=== PATIENT | female | born 1970 | race Caucasian/White ===

== ENCOUNTER 2021-03-29 19:27 | Emergency (ER) | payer MEDICARE, MEDICAID ==
[~2021-03-29] VITALS: Ht 170.2 cm; Wt 131.5 kg
[2021-03-29] MEDS ORDERED: DIPH,PERTUSS(ACELL),TET VAC/PF 0.5 ML SYRINGE. VAX IM ONE (20:30)
[2021-03-29] MEDS ORDERED: LIDOCAINE 2% 20 ML VIAL. IJ ONE (20:30)
--- NOTE | 2021-03-29 20:49 | PHYS DOC ---
Past History Past Surgical History: Appendectomy, Cervical Fusion, Cholecystectomy, Knee Replacement Additional Past Surgical Histo: l replace knee, r arthoscopic x 3 (FLOR POP) Alcohol Use: None (FLOR POP) General Adult EDM: Chief Complaint: LACERATION/AVULSION HPI: HPI: Patient is a 50 year old female who presents with laceration to the second digit of her right hand. She reports pain at the PIP joint of the second digit only. Patient states that she was opening a can of chili when she injured herself. She states that there was a significant amount of blood, but that it stopped bleeding just prior to arrival. Patient states that she did not see any bone or tenderness tissue. Patient does not have any drug allergies, but is unsure of the date of her last tetanus vaccine. (FLOR POP) Review of Systems: Review of Systems: Constitutional: Denies fever or chills Respiratory: Denies cough or shortness of breath Cardiovascular: Denies chest pain or edema Musculoskeletal: See HPI Integument: See HPI Neurologic: Denies headache, focal weakness or sensory changes (FLOR POP) Current Medications: Current Meds: Current Medications Medications (Trade) Dose Ordered Sig/Ana Start Time Stop Time Status Last Admin Dose Admin Diphtheria/ Pertussis/Tetanus Vacc (ADACEL TDap SYRINGE) 0.5 ml ONCE ONCE 03/29/21 20:30 03/29/21 20:31 DC 03/29/21 20:29 0.5 ML Lidocaine HCl (Lidocaine 2%) 20 ml 1X ONCE 03/29/21 20:30 03/29/21 20:31 DC 03/29/21 20:27 20 ML (FLOR POP) Allergies: Allergies: Allergies Coded Allergies Type Severity Reaction Last Updated Verified No Known Drug Allergies 03/29/21 No (FLOR POP) Physical Exam: PE: Constitutional: Well developed, well nourished, no acute distress, non-toxic appearance. Cardiovascular: Heart rate regular rhythm, no murmur. Lungs & Thorax: Bilateral breath sounds clear to auscultation. Skin: 1.2 cm laceration to the dorsal aspect of right digit 2 just distal to the PIP joint. Skin otherwise warm, dry, no erythema, no rash. Extremities: Second digit on right hand swollen and tender, range of motion intact. Extremities otherwise no tenderness, no cyanosis, no clubbing, ROM intact, no edema. (FLOR POP) PE: Constitutional: Well developed, well nourished, no acute distress, non-toxic appearance HENT: Normocephalic, atraumatic Eyes: Conjunctiva normal, no discharge Neck: Normal range of motion, supple Lungs & Thorax: No respiratory distress, equal chest rise and fall Skin: Warm, dry, no erythema, 2 cm laceration to distal PIP nonbleeding Extremities: Full ROM of all finger of right hand, laceration to right index finger as above Neurologic: Alert and oriented X 3, no focal deficits noted Psychologic: Affect normal, judgment normal (LEWIS SUBRAMANIAN DO) Current Patient Data: Vital Signs: Vital Signs Date Time Temp Pulse Resp B/P (MAP) Pulse Ox O2 Delivery O2 Flow Rate FiO2 03/29/21 19:35 99.0 86 18 172/91 (118) 96 Room Air (FLOR POP) Heart Score: C/O Chest Pain: No (FLOR POP) Course & Med Decision Making: Course & Med Decision Making Pertinent Labs and Imaging studies reviewed. (See chart for details) Patient's tetanus vaccine will be updated in the department today. After cleansing and digit block, wound will be explored for any retained foreign bodies and to evaluate depth of injury. (FLOR POP) Dragon Disclaimer: Dragon Disclaimer: This electronic medical record was generated, in whole or in part, using a voice recognition dictation system. (FLOR POP) Laceration Repair Lac Repair Sutures placed by Dr. Subramanian and myself. Indication: 1.2 cm laceration to dorsal aspect of right digit 1 Procedure: The patient was placed in the appropriate position and anesthesia was a digital block with lidocaine 2% plain. The area was then cleansed and debrided with Betadine. The laceration was closed with four 4-0 nylon simple interrupted sutures. The wound area was then dressed with adhesive bandage. Total repaired wound length: 1.2 cm Other Items: The patient tolerated the procedure very well. Complications: Patient became nauseated and was administered for Zofran ODT. (FLOR POP) Departure Departure: Impression: Primary Impression: Laceration of right index finger w/o foreign body w/o damage to nail Qualified Codes: S61.210A - Laceration without foreign body of right index finger without damage to nail, initial encounter Disposition: HOME / SELF CARE / HOMELESS Condition: STABLE Referrals: NON,STAFF (PCP) Patient Instructions: Laceration Care, Adult, [id number] Additional Instructions: As discussed, do not submerge your hand in water. You can have the sutures removed in 10 days either here in the emergency department, at urgent care, or with your primary care provider. Please return to the emergency department if you develop signs of infection or the stitches break. Attending Signature Attending Signature I have personally interviewed and examined the patient. All charts, labs, and imaging studies were reviewed. I agree with the PA/WELDING PROCESS ENGINEER's findings, exam, and plan. (LEWIS SUBRAMANIAN DO) FLOR POP Mar 29, 2021 20:49 LEWIS SUBRAMANIAN DO Mar 29, 2021 23:26
[2021-03-29] MEDS ORDERED: ONDANSETRON ODT 4 MG TAB.RAPDIS PO ONE (21:30)
[2021-03-29 21:35] VITALS: BP 132/82
== END 2021-03-29 21:46 | disposition home or self-care (01) ==
LOC: ER 19:27
DX: S61.210A Laceration without foreign body of right index finger without damage to nail, initial encounter (principal); Z90.49 Acquired absence of other specified parts of digestive tract; W23.0XXA Caught, crushed, jammed, or pinched between moving objects, initial encounter; Y93.89 Activity, other specified; Y92.89 Other specified places as the place of occurrence of the external cause; Y99.8 Other external cause status
CPT/HCPCS: 12001; 90471; 90715; 99283; J2001